=== PATIENT | female | born 1950 | race Caucasian/White ===

== ENCOUNTER → 2017-10-19 18:04 | Outpatient (CLI) | payer MEDICARE, OTHER, SELFPAY ==
--- NOTE | 2017-10-19 09:41 | COLBX_PTH ---
PATIENT: TC HERNANDEZ LOC: [facility] U#:[id number] AGE/SX: 74/F ROOM: RE10/19/[address]: Dr. Yoan Le MD : 1950 BED: DIS: SPEC #: [id number] RECD: 10/19/17 15:39 STATUS: SHREYAS BRIELLE #: [id number] FELIX: 10/19/17 09:[address]: Yoan Le DEPT: SURGICAL PATHOLOGY RECD BY: Jorge Finn ENTERED: 10/22/17 07:34 SP TYPE: COLON BX OTHR DR: Out of Town Doctor [facility] Tissues: Sigmoid colon biopsy Procedures: Surgery Specimen Level IV HEADER OPERATION: Colonoscopy with biopsies and polypectomy PRE-OP DIAGNOSIS: Positive guaiac stool TISSUE SUBMITTED: Sigmoid 30 cm polyp, right colon, rule out adenoma MICROSCOPIC DIAGNOSIS Sigmoid polyp, polypectomy and right colon biopsy: Tubular adenoma. Additional fragments of tubular adenoma. See comment. SJ:charli 10/23/17 COMMENT The specimen shows one polyp and smaller fragments. The polyp shows features of tubular adenoma and additional fragments consist of fragments of tubular adenoma and unremarkable colonic mucosa. MICROSCOPIC DESCRIPTION Slides are reviewed. GROSS DESCRIPTION Received in fixative is one container labeled with the patient's name and designated sigmoid polyp 30 cm and right colon. The specimen consists of a pleitez-pink polyp measuring 0.8 x 0.5 x 0.5 cm. The apparent base is inked. Also present in the container are multiple fragments of pleitez soft tissue measuring in aggregate 0.5 x 0.2 x 0.1 cm. The polyp is bisected and submitted entirely in one cassette. / MADHAV:charli 10/22/17 TC:1 CPT: 26609
== END ==
PROVIDERS: Visit Provider Internal Medicine Gastroenterology
DX: D12.5 Benign neoplasm of sigmoid colon (principal)
CPT/HCPCS: 88305